=== PATIENT | male | born 1990 | race Caucasian/White ===

== ENCOUNTER 2016-04-19 07:43 | Emergency (ER) | payer OTHER | END 2016-04-19 13:00 | disposition home or self-care (01) | LOC: ER1 07:43 | DX: S09.90XA Unspecified injury of head, initial encounter (principal); S39.012A Strain of muscle, fascia and tendon of lower back, initial encounter; S29.012A Strain of muscle and tendon of back wall of thorax, initial encounter; F17.200 Nicotine dependence, unspecified, uncomplicated; V89.2XXA Person injured in unspecified motor-vehicle accident, traffic, initial encounter; Y92.410 Unspecified street and highway as the place of occurrence of the external cause | CPT/HCPCS: 70450; 71010; 72070; 72100; 99284 ==

== ENCOUNTER 2016-07-15 00:19 | Emergency (ER) | payer BC, OTHER | END 2016-07-15 04:30 | disposition home or self-care (01) | LOC: ER1 00:19 | DX: R11.2 Nausea with vomiting, unspecified (principal); R19.7 Diarrhea, unspecified; F17.210 Nicotine dependence, cigarettes, uncomplicated | CPT/HCPCS: 99283 ==

== ENCOUNTER 2016-07-24 13:43 | Emergency (ER) | payer BC, OTHER | END 2016-07-24 15:45 | disposition home or self-care (01) | LOC: ER1 13:43 | DX: S05.01XA Injury of conjunctiva and corneal abrasion without foreign body, right eye, initial encounter (principal); F17.210 Nicotine dependence, cigarettes, uncomplicated; X58.XXXA Exposure to other specified factors, initial encounter | CPT/HCPCS: 99283 ==